=== PATIENT | female | born 1955 | race Caucasian/White ===

== ENCOUNTER → 2016-10-07 | Outpatient (CLI) | payer MEDICAID ==
[~2016-10-07] MED LIST: ALPR.5 PO; ALPR0.5T3 PO; IPRA0.02 NEB; MONT10TA4 PO; OMEP40CA2 PO; SYMB160A INH; ZOLP10TA3 PO
--- NOTE | 2016-10-31 10:28 | RSPPFT ---
DATE OF PROCEDURE: 10/07/16 COMMENTS: Spirometry demonstrates an FEV1 of 0.7 at 31% of predicted, FVC of 1.1 at 34%, FEF 25-75 is 19%. Post-bronchodilator study demonstrated significant improvements indicating reversibility. Lung volumes were not completed. Diffusion capacity is moderately reduced. Flow volume loops are atypical and suggest an obstructive defect. IMPRESSION: 1. Moderately severe obstructive disease. 2. Significant response to use of bronchodilator indicating reversibility. 3. Moderate loss in diffusion capacity.
== END ==
LOC: HRSP 12:19
DX: J44.9 Chronic obstructive pulmonary disease, unspecified (principal); J45.909 Unspecified asthma, uncomplicated; R06.00 Dyspnea, unspecified
CPT/HCPCS: 94060; 94726; 94729